=== PATIENT | female | born 1985 | race Caucasian/White ===

== ENCOUNTER 2018-08-05 15:15 | Observation (INO) ==
[2018-08-05] MEDS ORDERED: Sodium Chloride 0.9% 1,000 ML PRIMARY IV ONE (15:30)
[2018-08-05 15:48] LABS: BASOPHILS # (AUTO) 0.02 10*3/UL; BASOPHILS % (AUTO) 0.2 % (0-1); EOSINOPHILS # (AUTO) 0.04 10*3/UL; EOSINOPHILS % (AUTO) 0.3 % (0-8); Hematocrit [HCT] 39.6 % (37.0-47.0); Hemoglobin [HGB] 13.6 g/dL (12.0-16.0); LYMPHOCYTES # (AUTO) 1.95 10*3/uL; MEAN CORPUSCULAR HEMOGLOBIN 33.2 PG (27-31); MEAN CORPUSCULAR HGB CONC 34.3 g/dL (33-37); MEAN CORPUSCULAR VOLUME 96.6 FL (81-99); MEAN PLATELET VOLUME 9.3 FL (7.4-12.2); MONOCYTES # (AUTO) 0.47 10*3/UL (0.3-0.8); MONOCYTES % (AUTO) 3.6 % (5-15); NEUTROPHILS # (AUTO) 10.62 10*3/UL; NEUTROPHILS % (AUTO) 80.9 % (50-80)
[2018-08-05 15:53] LABS: BLOOD UREA NITROGEN 16 mg/dL (7-22); BUN/CREATININE RATIO 22.85 (6-20); LIPASE 48 IU/L (23-300); SERUM ALBUMIN 4.4 g/dL (3.5-4.8)
[2018-08-05 15:58] LABS: PLATELET MORPHOLOGY COMMENT NORMAL MORPHOLOGY (NORM); WBC MORPHOLOGY COMMENT NORMAL MORPHOLOGY (NORM)
[2018-08-05 15:59] LABS: RBC MORPHOLOGY COMMENT SEE COMMENTS (NORM)
[2018-08-05 16:04] LABS: BILIRUBIN,URINE NEGATIVE (NEG); CLARITY,URINE CLEAR (CLEAR); COLOR,URINE YELLOW (Y); GLUCOSE, URINE (UA) NEGATIVE (NEG); OCCULT BLOOD,URINE NEGATIVE (NEG); PROTEIN,URINE NEGATIVE (NEG); UROBILINOGEN,URINE 0.2 EU/dL (0.2)
[2018-08-05 16:06] LABS: URINE SAMPLE TYPE CLEAN CATCH URINE
--- NOTE | 2018-08-05 17:12 | DI ---
CT ABDOMEN SCAN WITH IV CONTRAST, 08/05/2018 3:30 PM : Clinical History: Abdominal pain. Previous Exam: None at this facility. Scans are performed from the lower lung bases through the liver and kidneys with IV contrast. 75 mL o f Isovue 300 was injected IV. No oral or rectal contrast was ordered. The lung bases are clear. There is hepatomegaly with the liver is otherwise normal. The gallbladder i s grossly normal. There is no abnormality of the spleen, pancreas, and adrenal glands. Both kidneys a re normal in size, shape, position and contour. There is no hydronephrosis or hydroureter. There are 2 mm nonobstructing calculi in right upper pole and midzone calyces. No right ureteral calculi are se en. No left renal or ureteral calculi are present. There are no abnormal retrocrural or periaortic no gallito. No ascites is present. READIN. Small, 2 mm, nonobstructing right renal calculi in mid zone and upper pole calyces. Both ureters and the left kidney are normal. 2. The remainder of the study is normal. CT PELVIS SCAN WITH IV CONTRAST, 08/05/2018 3:30 PM: Clinical History: See above. Previous Exam: None at this facility. Scans are performed from just superior to the umbilicus to the symphysis pubis with IV contrast. This is the same bolus of contrast used for the CT scans of the abdomen. Scans through the lower abdomen and pelvis show no masses, enhancing lesions, or abnormal fluid colle ctions. There is no adenopathy. The appendix is abnormally dilated at 10 mm and shows enhancement of the bowel wall along with periserosal inflammatory/infiltrative change. The appendix is in the right lower quadrant at the cecum is located in the midline superior to the dome of the bladder. There is m arked redundancy of the entire colon especially the proximal ascending colon and transverse colon. Th e cecum is decompressed compared to the remainder of the proximal ascending colon. The terminal ileum and ileocecal valve are difficult to visualize but the overall appearance of the small bowel is norm al. There is a small umbilical hernia through which only mesenteric fat has herniated. There is an ov oid mass in the right ovary that measures 35 x 40 x 45 mm and contains fat density tissue, soft tissu e density material and bone density material. The bony lesion has a configuration that is is reminisc ent of a molar tooth. This solid mass represents a dermoid cyst. The uterus and left ovary are normal . READIN. Acute appendicitis. The appendix is located in the right lower quadrant but the cecum is decompre ssed and is situated directly superior to the dome of the bladder. 2. Dermoid cyst of the right ovary containing fatty tissue, soft tissue, and bone. The uterus and le ft ovary are normal. 3. Small umbilical hernia containing only mesenteric fat.
[2018-08-05] MEDS ORDERED: ROCURONIUM 10 MG/1 ML - 5 ML VIAL IVP ONE (18:14)
[2018-08-05] MEDS ORDERED: fentaNYL Inj 250 MCG/5 ML VIAL ONE (18:16)
[2018-08-05] MEDS ORDERED: LIDOCAINE MPF 2% - 5 ML (20 MG/1 ML) ONE (18:16)
[2018-08-05] MEDS ORDERED: MIDAZOLAM 5 MG/1 ML ONE (18:16)
[2018-08-05] MEDS ORDERED: KETAMINE 100 MG/1 ML - 5 ML ONE (18:16)
[2018-08-05] MEDS ORDERED: PROPOFOL 10 MG/1 ML (200 MG/20 ML) VIAL IV ONE (18:17)
[2018-08-05] MEDS ORDERED: ERTAPENEM 1 GM VIAL ONE (18:21)
[2018-08-05] MEDS ORDERED: Sodium Chloride 0.9% 100 ML IV ONE (18:21)
--- NOTE | 2018-08-05 18:27 | CONSULT ---
Consult Note - Consult Consult Date: 08/05/18 Reason for Consult: PreOp Consulation : General Surgery Requesting Physician: Dr. Arevalo Primary Care Provider: Jon Ford MD - History of Present Illness History of Present Illness: Patient is a healthy 33-year-old female who reports problems began about 10 or 10:30 this morning. She had periumbilical pain which moved down to her right lower quadrant. The pain was progressive. She felt feverish without chills. She had some nausea without vomiting. She's never had a pain like this before. She presented to the emergency room. Her white count was slightly elevated at 13,000. Serum test negative. Urinalysis was unremarkable. She is tachycardic at 104. CT scan showed evidence of acute appendicitis and a right dermoid ovarian cyst. I am asked to see her in consultation. Review of Systems - Gastrointestinal Gastrointestinal / Abdominal: REPORTS: Nausea, Abdominal Pain, See HPI Past Medical History Medical History: Reports some problems with bleeding with her childbirth. Surgical History: No prior surgical procedures. Tobacco Use: Never Smoker In the Past 12 Months, Have Used or Abuse Any of the Following Substance: None Alcohol Use: Rarely Medication / Allergies Home Medications: Home Medications 3 Medication Instructions Recorded Confirmed Type cetirizine 10 mg tablet 10 mg PO QDAY 07/17/18 08/05/18 History norethindrone 1 mg-ethinyl 1 tab PO QDAY 07/17/18 08/05/18 History estradiol 20 mcg (21)-iron 75 mg (7) tablet Allergies/Adverse Reactions: Allergies 3 Allergy/AdvReac Type Severity Reaction Status Date / Time ceftriaxone [From Rocephin] Allergy RASH Verified 08/05/18 15:22 Results - Labs CBC and BMP: 08/05/18 15:36 08/05/18 15:36 - Imaging Status: Image Reviewed by Me (And discussed with the radiologist.), Report Reviewed by Me Exam - Vitals Vital Signs: Vital Signs Temperature 97.5 F Temperature Source Temporal Artery Scan Pulse Rate [Pulse Oximeter 104 Left] Respiratory Rate 16 Blood Pressure [Right Arm] 147/99 Pulse Ox 99 Oxygen Delivery Method Room Air Height 5 ft 4 in Weight 145 lb - General General Appearance: No Acute Distress, Cooperative - Respiratory Respiratory Exam: POSITIVE: Clear to Auscultation - Bilaterally, Breathing Non Labored - Cardiovascular Cardiovascular Exam: POSITIVE: No Murmur, Tachycardia - GI/Abdominal GI/Abdominal Exam: POSITIVE: Normal Bowel Sounds, Non Distended, Soft Additional GI/Abdominal Exam Details: Focal right lower quadrant pain with voluntary guarding. - Rectal Rectal Exam: POSITIVE: Deferred - Neurological Neurological Exam: POSITIVE: Alert, Oriented x 3 - Psychiatric Psychiatric Exam: POSITIVE: Normal Affect, Normal Mood Assessment and Plan - Patient Problems (1) Acute appendicitis Current Visit: Yes Status: Acute Priority: High Onset Date: 08/05/18 Comment: Clinical exam and CT scan findings consistent with acute appendicitis. Proceed with open appendectomy.The procedure has been discussed with the patient in complete yet simple terms including benefits, risks, and alternatives. All questions have been answered. Informed consent has been obtained. Code(s): K35.80 - Unspecified acute appendicitis (2) Dermoid cyst of right ovary Current Visit: Yes Status: Acute Priority: Medium Comment: Dermoid cyst of the right ovary. We will plan right oophorectomy. Dr. Miller, our LABORATORY MONITOR provider, will assist with the surgery. Probably will not be able to salvage the ovary.The procedure has been discussed with the patient in complete yet simple terms including benefits, risks, and alternatives. All questions have been answered. Informed consent has been obtained. Patient states she is done having children. Code(s): D27.0 - Benign neoplasm of right ovary
--- NOTE | 2018-08-05 18:50 | PDOC ---
Abdomen/Flank HPI - General Chief Complaint: Abdomen Pain Stated Complaint: ABDOMINAL PAIN Date Seen by Provider: 08/05/18 Time Seen by Provider: 15:20 Source: POSITIVE: Patient, Spouse Exam Limitations: POSITIVE: No limitations Nurse's Notes Reviewed & Considered: Yes - History of Present Illness Initial Comments: The patient is a 33-year-old female. She presents to the emergency room with her . Patient states that around 10 AM this morning she developed paraumbilical pain with radiation into the right lower quadrant. Patient states she last ate at 8:30 AM. She's not had any known fevers. No vomiting or diarrhea. Her last menstrual period was 3 weeks ago and she is on control pills. No history of previous abdominal surgery. Body Location Affected: REPORTS: Abdomen Timing: REPORTS: Gradual, Getting Worse Duration: <24 hours (Approximately 6 hours) Severity: Moderate Quality: REPORTS: "Pain" Abdominal Pain Onset Location: REPORTS: RLQ, Periumbilical Abdominal Pain Radiation: REPORTS: RLQ Context: REPORTS: None Modifying Factors: improves with: Movement Associated Symptoms: DENIES: Denies symptoms, Back pain, Bloody Emesis, Chest pain, Coffee Grounds Emesis, Chills, Diaphoresis, Fever, Fatigue, Headache, Heartburn, Loss of Appetite, Nausea, Rash, Shortness of breath, Swelling/mass in abdomen, Syncope, Testicular Pain, Vomiting, Weakness, Grossly Bloody Diarrhea, Constipation, Diarrhea, Dysuria, Incontinent Stool, Incontinent Urine , Mucous Diarrhea, Difficulty Walking, Dizziness, Light Headedness, Numbness, Other Similar Symptoms Previously: No Recent Care Received: REPORTS: Denies Any Prior Injuries Related to Current Complaint?: No - Patient Home Medications Home Medications: Home Medications cetirizine 10 mg tablet 10 mg PO QDAY 07/17/18 norethindrone 1 mg-ethinyl estradiol 20 mcg (21)-iron 75 mg (7) tablet 1 tab PO QDAY 07/17/18 - Patient Allergies Allergies/Adverse Reactions: Allergies 3 Allergy/AdvReac Type Severity Reaction Status Date / Time ceftriaxone [From Rocephin] Allergy RASH Verified 08/05/18 15:22 Past Medical History - heen HEENT History: Other (please comment) Additional HEENT History: ALLERGIES Cardiovascular History: Denies History Respiratory History: Denies History Gastrointestinal History: Denies History Genitourinary History: Denies History Endocrine History: Denies History Musculoskeletal History: Denies History Neurological History: Denies History Blood Disorders: Denies History Psychiatric History: Denies History History of Sexually Transmitted Diseases: No Female Reproductive History: Denies History LMP: 08/03/18 Obstetrical History: Denies History Cancer History: Denies History In Past Year Been Physically Harmed or Verbally Threatened: No History of MDRO: No History of Other Communicable Diseases: No Tobacco Use: Never Smoker Type of alcohol normally used: Wine In the Past 12 Months, Have Used or Abuse Any Substance: None Previous Surgical History: No Significant Family History: No pertinent family hx Past Medical History Reviewed: Reviewed - No Changes ROS - Limitations ROS Limitations: No Limitations Constitution: REPORTS: Denies Symptoms Cardiovascular: REPORTS: Denies Cardiac Symptoms Respiratory: REPORTS: Denies Resp Symptoms Neurological: REPORTS: Denies Neuro Symptoms Gastrointestinal: REPORTS: Abdominal Pain Endocrine: REPORTS: Denies Symptoms Musculoskeletal: REPORTS: Denies MS Symptoms Genitourinary: REPORTS: Denies Symptoms ENT: REPORTS: Denies Symptoms Skin: REPORTS: Denies Skin Symptoms Lympathic: REPORTS: Denies Lympathic Symptoms Immunologic: POSITIVE: Denies Symptoms Psychiatric: POSITIVE: Denies Psych Symptoms Abdominal/Flank Pain PE - General Appearance General Appearance: POSITIVE: Alert, Cooperative, No Acute Distress, No Evidence of Trauma - HEENT HEENT: POSITIVE: Head Inspection Nml, Eyes Inspection Nml, Ears Inspection Nml, Nose Inspection Nml, Oral/Dental Inspect. Nml, Pharynx Inspect. Nml, PERRL, EOMI - Neck Neck: POSITIVE: Normal Inspection, No Apparent Injury - Respiratory Respiratory: POSITIVE: No Respiratory Distress, Breath Sounds Normal, Chest Non- Tender - Cardiovascular Cardiovascular: POSITIVE: Regular Rate and Rhythm, Heart Sounds Normal, Equal Pulses, Strong Pulses Peripheral Pulses: Radial (R): 2+, Radial (L): 2+ - Chest Chest: POSITIVE: Non Tender - Abdomen Abdomen: Soft: (All Quadrants), Normal Bowel Sounds: (All Quadrants), Denies Tenderness: (LLQ), (RUQ), (LUQ), No Splenomegaly: (All Quadrants), No Hepatomegaly: (All Quadrants), No Guarding: (All Quadrants), No Rebound: (All Quadrants), No Palpable Pulse: (All Quadrants), No Palpabale Mass: (All Quadrants), No Distention: (All Quadrants), No Rigidity: (All Quadrants), Tenderness Noted: (RLQ) Additional Abdominal Details: Abdominal examination shows bowel sounds to be present. Patient has pain on palpation over the right lower quadrant. No masses, organomegaly or rebound. - Back Back: POSITIVE: Normal Inspection. NEGATIVE: CVA Tenderness (R), CVA Tenderness (L) - Skin Skin: POSITIVE: Intact, Normal For Race, Warm, Dry, No Rash - Extremities Extremity: Non-Tender: (All Extremities), Normal ROM: (All Extremities), Normal Inspection: (All Extremities) - Neurological Neurological: POSITIVE: Affect Apporpriate, Oriented X3, mica inspector Normal As Tested, Motor Normal, Sensation Normal - Psychological Psychiatric: POSITIVE: Affect Appropriate, Mood Appropriate Images - Complete Complete: 1 - Pain on palpation Abdomen Progress - Results Reviewed by me Xrays/CTs/US Reviewed by me: Yes Discussed with Radiologist: Yes Radiology Findings: CT scan abdomen and pelvis shows acute appendicitis. There is also identified a dermoid cyst of the right ovary Lab Results Reviewed by Me: Yes CBC and BMP: 08/05/18 15:36 08/05/18 15:36 Lab Results:: Laboratory Results 3 08/05/18 08/05/18 08/05/18 15:36 15:36 15:36 WBC 13.11 H RBC 4.10 L Hgb 13.6 Hct 39.6 MCV 96.6 MCH 33.2 H MCHC 34.3 RDW Std Deviation 41.6 RDW Coeff of Geo 12.0 Plt Count 259 MPV 9.3 Immature Gran % (Auto) 0.1 Neut % (Auto) 80.9 H Lymph % (Auto) 14.9 Bertie % (Auto) 3.6 L Eos % (Auto) 0.3 Baso % (Auto) 0.2 Immature Gran # (Auto) 0.01 Neut # (Auto) 10.62 Lymph # (Auto) 1.95 Bertie # (Auto) 0.47 Eos # (Auto) 0.04 Baso # (Auto) 0.02 WBC Morphology Comment Normal morphology Plt Morphology Comment Normal morphology RBC Morph Comment See comments Sodium 137 Potassium 3.6 L Chloride 107 Carbon Dioxide 23 Anion Gap 7 BUN 16 Creatinine 0.7 Estimated GFR > 60 BUN/Creatinine Ratio 22.85 H Glucose 180 H Calculated Osmolality 289.0 Calcium 8.7 Total Bilirubin 0.3 AST 20 ALT 22 Alkaline Phosphatase 43 Total Protein 7.3 Albumin 4.4 Globulin 2.9 Albumin/Globulin Ratio 1.50 Amylase 59 Lipase 48 Serum HCG, Qual Negative Ur Collection Type Urine Color Urine Clarity Urine pH Ur Specific [place] Urine Protein Urine Glucose (UA) Urine Ketones Urine Occult Blood Urine Nitrate Urine Bilirubin Urine Urobilinogen Ur Leukocyte Esterase Ur Culture Indicated? 3 08/05/18 15:57 WBC RBC Hgb Hct MCV MCH MCHC RDW Std Deviation RDW Coeff of Geo Plt Count MPV Immature Gran % (Auto) Neut % (Auto) Lymph % (Auto) Bertie % (Auto) Eos % (Auto) Baso % (Auto) Immature Gran # (Auto) Neut # (Auto) Lymph # (Auto) Bertie # (Auto) Eos # (Auto) Baso # (Auto) WBC Morphology Comment Plt Morphology Comment RBC Morph Comment Sodium Potassium Chloride Carbon Dioxide Anion Gap BUN Creatinine Estimated GFR BUN/Creatinine Ratio Glucose Calculated Osmolality Calcium Total Bilirubin AST ALT Alkaline Phosphatase Total Protein Albumin Globulin Albumin/Globulin Ratio Amylase Lipase Serum HCG, Qual Ur Collection Type Clean catch urine Urine Color Yellow Urine Clarity Clear Urine pH 6.0 Ur Specific [place] <=1.005 Urine Protein Negative Urine Glucose (UA) Negative Urine Ketones Negative Urine Occult Blood Negative Urine Nitrate Negative Urine Bilirubin Negative Urine Urobilinogen 0.2 Ur Leukocyte Esterase Negative Ur Culture Indicated? Culture not set - Patient's Progress Pain Medication Addressed: POSITIVE: Patient Refused School/Work Release Addressed: POSITIVE: Not Applicable Re-examine Time: 17:20 Re-Examine Comment: Case discussed with Dr. Ireland, surgeon, who will come to the emergency room to further evaluate and treat, and has a admitted the patient to the OR. Status: POSITIVE: Unchanged, Re-Examined - Consult Consult (If Yes, Name of Consulting MD & Time Called): Yes (Dr. Ireland, surgery, [id number]) Consulting MD will see pt:: POSITIVE: In ED, [facility] Admit Counseled: POSITIVE: Patient, RE: Lab Results, RE: Radiology Results, RE: DX, RE : Need for F/U Patient Care Time - Estimated PCT Patient Care Time (In Minutes): 45 Vital Signs - Recent Vital Signs Vital Signs: Vital Signs (Last 8 hours) Temp Pulse Resp BP Pulse Ox 08/05/18 15:39 97.5 F 104 H 16 147/99 99 - VS Reviewed Vital Signs Reviewed: Yes Discharge Clinical Impression: Appendicitis, Dermoid cyst of ovary Discharge Disposition: Transferred to OR Condition: Fair Date Decision to Admit to Inpatient: 08/05/18 Time Decision to Admit to Inpatient: 17:20
[2018-08-05] MEDS ORDERED: ONDANSETRON 4 MG/2 ML VIAL ONE (18:51)
[2018-08-05] MEDS ORDERED: KETOROLAC 30 MG/1 ML VIAL ONE (18:51)
[2018-08-05] MEDS ORDERED: Ertapenem Inj 1 GM in Sodium Chloride 0.9% 100 ML IV SCH (18:51)
[2018-08-05] MEDS ORDERED: Nasal Sanitizer POPSWAB ampule 3 AMP (Nozin) PREOP DOSE ENOS SCH (18:51)
[2018-08-05] MEDS ORDERED: Lactated Ringers 1,000 ML PRIMARY IV SCH ×2 (18:51→20:00)
[2018-08-05] MEDS ORDERED: SUGAMMADEX SODIUM 200 MG/2 ML VIAL IV ONE (19:02)
[2018-08-05] MEDS ORDERED: BUPivacaine Liposome/PF (Exparel) Inj 20ml vial INFIL ONE (19:13)
[2018-08-05] MEDS ORDERED: BUPIVACAINE 0.25% W/ EPI - 10 ML VIAL ONE (19:23)
[2018-08-05] MEDS ORDERED: Lactated Ringers 1,000 ML PRIMARY IV ONE (19:26)
[2018-08-05] MEDS ORDERED: LIDOCAINE W/ SODIUM BICARB 0.5 ML SYR SUBD PRN (19:47)
[2018-08-05] MEDS ORDERED: PROMETHAZINE 25 MG/1 ML VIAL IM PRN (19:47)
[2018-08-05] MEDS ORDERED: fentaNYL Inj 100 MCG/2 ML VIAL IVP PRN (19:47)
--- NOTE | 2018-08-05 19:47 | CRNA.PROGR ---
Anesthesia Time - Procedure/Recovery Time Start Date: 08/05/18 End Date: 08/05/18 Anesthesia : Time In: 18:27 Anesthesia : Time Out: 19:44 Anesthesia : Total Time: 77 - Total Anesthesia Time Total Anesthesia Time (minutes): 77 - Other Weight: 65.771 kg Height: 5 ft 4 in Body Mass Index (BMI): 24.9 Physical Status: P1 Anesthesia Type: General Anesthesia : ET
--- NOTE | 2018-08-05 19:47 | GEN.OPNOTE ---
Operative Note Surgery Date: 08/05/18 Preoperative Diagnosis: Acute appendicitis. Dermoid cyst of the right ovary. Postoperative Diagnosis: Same. Procedure: #1 open appendectomy. #2 right oophorectomy. Surgeon: Cameron Ireland MD Cleaner Laboratory Equipment: Vimal Miller MD Anesthesia Provider: Chase Olivo CRNA Anesthesia Type: General Estimated Blood Loss (mL): 2 Fluids: 1 L of crystalloid. 1 g of IV Invanz at the start of the procedure. 30 mg of IV Toradol at the end of the procedure. Pathology: Specimen sent to pathology. Indications: Focal right lower quadrant abdominal pain with guarding. Positive CT scan for acute appendicitis. Dermoid cyst of the right ovary. Findings: Acute appendicitis. Dermoid cyst of the right ovary. Complications: None. Operative Summary: Patient was taken to the operating room and placed on the operating table in the supine position. Following the induction of adequate general anesthetic the abdomen was prepped and draped in a sterile fashion. A surgical timeout was done. Standard incision was made over McBurney's point. It was carried down to the fascia with electrocautery. The external oblique was split along the course of its fibers using electrocautery. The external oblique was retracted. The abdominal wall was transected using a muscle-splitting technique. The peritoneum was elevated and incised. An Meng retractor was placed. The cecum and appendix were mobilized. Once fully mobilized the mesoappendix was taken down by serially clamping dividing and ligating the mesoappendix until the appendix was freed to its base. The base of the appendix was clamped with a straight clamp. The clamp was unclamped and moved distally. The base was tied off with an 0 chromic. The appendix was amputated. The stump was cauterized and inverted into the base of the cecum using a Z-plasty suture of 2- 0 Vicryl. Attention was turned to the right ovary. It was delivered into the wound. The attachments to the fallopian tube were clamped divided and ligated with 0 Vicryl sutures. The ovarian vessels were clamped divided and ligated with 0 Vicryl. The entire ovary was removed intact. Hemostasis was assured. Appropriate irrigation and suctioning were performed. The cecum was returned to the relative anatomic position and covered with omentum. The peritoneum was closed with 2-0 Vicryl. The muscle layers were closed with 0 Vicryl. The wound was irrigated as we closed in layers. Final irrigation was 1/2% Marcaine with epinephrine. This was allowed to sit in the wound for several minutes and then removed. 20 mL of Exparel was infiltrated into the subcutaneous tissue circumferentially. May's fascia was closed with 2-0 Vicryl. The skin was closed with running subcuticular 4-0 Prolene. Mastisol and Steri-Strips were placed followed by a sterile dressing. The patient tolerated the entire procedure well without complication. She was taken to the recovery room in stable condition. All counts were correct.
--- NOTE | 2018-08-05 19:47 | CRNA.PROGR ---
Anesthesia Recovery Phase I - Post Anesthesia Evaluation Patient's Condition on Arrival in Phase I: Stable Pain Level: 4
[2018-08-05] MEDS: HYDROmorphone 2 MG/1 ML IVP PRN ×2 (20:02→20:07)
[2018-08-05 20:28] LABS: HIV ANTIBODY NEGATIVE (N); HIV-1 P24 ANTIGEN NEGATIVE (N)
[2018-08-05] MEDS: HYDROcodone-APAP 5 MG -325 MG TABLET PO PRN (20:51)
[2018-08-05] MEDS: MORPHINE SULFATE 2 MG/1 ML IVP PRN ×2 (22:10→23:02)
[2018-08-05] MEDS: DOCUSATE 100 MG CAPSULE PO SCH (22:14)
[2018-08-05] MEDS: ONDANSETRON 4 MG/2 ML VIAL IVP PRN (23:09)
[2018-08-06] MEDS: MORPHINE SULFATE 2 MG/1 ML IVP PRN ×2 (00:19→03:57)
[2018-08-06] MEDS: HYDROcodone-APAP 5 MG -325 MG TABLET PO PRN ×3 (01:24→10:05)
[2018-08-06] MEDS: KETOROLAC 15 MG/1 ML VIAL IVP PRN ×3 (01:37→13:57)
[2018-08-06 04:59] LABS: BASOPHILS # (AUTO) 0.01 10*3/UL; BASOPHILS % (AUTO) 0.1 % (0-1); EOSINOPHILS # (AUTO) 0 10*3/UL; EOSINOPHILS % (AUTO) 0 % (0-8); Hematocrit [HCT] 36.3 % (37.0-47.0); Hemoglobin [HGB] 12.2 g/dL (12.0-16.0); MEAN CORPUSCULAR HEMOGLOBIN 32.8 PG (27-31); MEAN CORPUSCULAR HGB CONC 33.6 g/dL (33-37); MEAN CORPUSCULAR VOLUME 97.6 FL (81-99); MEAN PLATELET VOLUME 9.7 FL (7.4-12.2); MONOCYTES # (AUTO) 0.41 10*3/UL (0.3-0.8); MONOCYTES % (AUTO) 3.5 % (5-15); NEUTROPHILS # (AUTO) 10.09 10*3/UL; NEUTROPHILS % (AUTO) 85.1 % (50-80); RED BLOOD COUNT 3.72 10^6/uL (4.20-5.40)
[2018-08-06 05:03] LABS: BLOOD UREA NITROGEN 7 mg/dL (7-22)
[2018-08-06 05:20] LABS: PLATELET MORPHOLOGY COMMENT NORMAL MORPHOLOGY (NORM); RBC MORPHOLOGY COMMENT NORMAL MORPHOLOGY (NORM); WBC MORPHOLOGY COMMENT NORMAL MORPHOLOGY (NORM)
[2018-08-06 06:50] VITALS: RESP 17; O2SAT 95
[2018-08-06] MEDS: DOCUSATE 100 MG CAPSULE PO SCH (08:30)
[2018-08-06] MEDS: ONDANSETRON 4 MG/2 ML VIAL IVP PRN (08:38)
[2018-08-06] MEDS ORDERED: NORETHINDRONE E ESTRADIOL IRON PO SCH (09:00)
[2018-08-06 11:12] VITALS: BP 130/84; TEMP 97.8
--- NOTE | 2018-08-06 14:19 | DCSUMMARY ---
Discharge Summary Admit Date: 08/05/18 Discharge Date: 08/06/18 Admitting Diagnosis: acute appendicitis, dermoid cyst of the right ovary Discharge Diagnosis: Same as preop Primary Surgery and Date: An appendectomy and right oophorectomy Hospital Course: Patient is admitted to the hospital for observation because she had a acute appendicitis is found to have a dermoid cyst of the right ovary. She underwent an appendectomy and had excision of the right ovary. First postoperative day she is doing fine tolerated diet pain is under control she is be discharged home follow-up in 1 week's time Exam - Vitals Vital Signs: Vital Signs Temperature 97.8 F Temperature Source Temporal Artery Scan Pulse Rate [Apical] 88 Pulse Rate [Pulse Oximeter 77 Left] Pulse Rate 82 Respiratory Rate 17 Blood Pressure [Right Arm] 130/84 Blood Pressure 122/73 Pulse Ox 95 Oxygen Flow Rate RA Oxygen Delivery Method Room Air Height 5 ft 4 in Weight 148 lb 2 oz - GI/Abdominal GI/Abdominal Exam: POSITIVE: Normal Bowel Sounds, Non Tender, Non Distended, Soft
== END 2018-08-06 14:49 | disposition home or self-care (01) ==
LOC: ER 15:15 → OR 18:22 → MED/SURG 18:22
PROVIDERS: ADMIT Surgery; ATTEND Surgery